=== PATIENT | female | born 1955 | race Asian ===

== ENCOUNTER 2016-12-04 12:01 | Day surgery (SDC) | payer OTHER ==
[~2016-12-04] VITALS: Ht 154.9 cm; Wt 53.1 kg
[2016-12-04] MEDS ORDERED: LEVOTHYROXINE (14:11)
[2016-12-04] MEDS ORDERED: ALENDRONATE SODIUM (14:11)
[2016-12-04 15:39] VITALS: BP 129/67; PULSE 63; RESP 16
[2016-12-04] MEDS ORDERED: PROPOFOL 20 ML ONE ×2 (15:49→16:12)
--- NOTE | 2016-12-04 16:14 | OPPN ---
Date/Time of Note Date/Time of Note DATE: 12/04/16 TIME: 16:12 Operative Report Preoperative Diagnosis Colorectal cancer screening Postoperative Diagnosis Impression: * Normal colonic mucosa to cecum * Moderate-sized internal hemorrhoids Plan: * Annual Hemoccult stool testing * Screening colonoscopy in 10 years . Operation/Procedure Performed Colonoscopy to cecum Provider: RAFAEL NATARAJAN MD Anesthesia Type: MAC Estimated blood loss: none Specimen: none Grafts/Implants: none Complications: no RAFAEL NATARAJAN MD Dec 04, 2016 16:14
--- NOTE | 2016-12-04 16:15 | OPPN ---
Date/Time of Note Date/Time of Note DATE: 12/04/16 TIME: 16:14 Operative Report Preoperative Diagnosis Dysphagia Postoperative Diagnosis Impression: * Mild gastritis. Rule out H. pylori infection. Biopsies obtained * Normal esophagus. Rule out eosinophilic esophagitis. Biopsies obtained Plan: * Review pathology as soon as available * Follow-up as previously scheduled Operation/Procedure Performed EGD with biopsies Provider: RAFAEL NATARAJAN MD Anesthesia Type: MAC Estimated blood loss: none Transfusion Required: no Specimens Gastric body and antrum Grafts/Implants: none Complications: no RAFAEL NATARAJAN MD Dec 04, 2016 16:15
[2016-12-04 16:43] VITALS: BP 131/62; PULSE 61; RESP 12
== END 2016-12-04 18:39 | disposition home or self-care (01) ==
LOC: GIL 12:01
PROVIDERS: ATTEND Internal Medicine Gastroenterology
DX: K29.50 Unspecified chronic gastritis without bleeding (principal); Z12.11 Encounter for screening for malignant neoplasm of colon; E03.9 Hypothyroidism, unspecified
CPT/HCPCS: 43239; 45378; 88305; 88312; Z7610